=== PATIENT | male | born 1955 | race African-American/Black ===

== ENCOUNTER 2021-04-19 21:23 | Inpatient (IN) | payer OTHER ==
[2021-04-19 22:39] VITALS: BMI 26.4
[2021-04-19] MEDS ORDERED: ACETAMINOPHEN 325 MG TABLET (FP) PO PRN (23:33)
[2021-04-19] MEDS ORDERED: MENTHOL/PHENOL 1 EACH UD MM PRN (23:33)
[2021-04-19] MEDS ORDERED: MAGNESIUM HYDROX 2400MG/30ML ORAL SUSPENSION 30 ML CUP PO PRN (23:33)
[2021-04-19] MEDS ORDERED: MAGNESIUM CITRATE 300 ML BOTTLE PO PRN (23:33)
[2021-04-19] MEDS ORDERED: MAG HYDROX/AL HYDROX/SIMETH 30 ML UNIT-DOSE CUP PO PRN (23:33)
[2021-04-19] MEDS ORDERED: NALOXONE (NARCAN) HCL 4 MG/0.1 ML SPRAY NS PRN (23:33)
[2021-04-20] MEDS ORDERED: methaDONE HCL 10 MG TABLET (FOR DETOX USE ONLY) PO ONE ×2 (00:06→10:00)
[2021-04-20] MEDS ORDERED: cloNIDine HCL 0.1 MG TABLET PO PRN (00:06)
[2021-04-20] MEDS ORDERED: hydrOXYzine PAMOATE 25 MG CAPSULE (FP) PO PRN (00:10)
[2021-04-20] MEDS: ACETAMINOPHEN 325 MG TABLET (FP) PO PRN ×4 (00:36→22:05)
[2021-04-20] MEDS: INSULIN SLIDING SCALE (NOVOLOG) 1 VIAL SQ SCH ×2 (06:01→17:20)
[2021-04-20] MEDS: GABAPENTIN 400 MG CAPSULE PO SCH ×2 (10:16→22:03)
[2021-04-20] MEDS: PANTOPRAZOLE 40 MG TABLET PO SCH (10:16)
[2021-04-20] MEDS: TAMSULOSIN HCL 0.4 MG CAP PO SCH (10:16)
[2021-04-20] MEDS: PRENATAL VITAMINS W/ FOLIC ACID TABLET (FP) PO SCH (10:16)
[2021-04-20] MEDS: CLOPIDOGREL BISULFATE 75 MG TABLET (FP) PO SCH (10:16)
[2021-04-20] MEDS: ASPIRIN 81 MG CHEWABLE TABLETS PO SCH (10:16)
[2021-04-20] MEDS: DOLUTEGRAVIR SODIUM 50 MG TABLET (NON-FORMULARY) PO SCH (10:36)
[2021-04-20] MEDS: FINASTERIDE 5 MG TABLET (FP) PO SCH (10:36)
[2021-04-20] MEDS: NIFEdipine E.R. 90 MG TABLET PO SCH (10:36)
[2021-04-20] MEDS: lamiVUDine/ZIDOVUDINE 150/300 1 COMBO TABLET PO SCH (13:51)
[2021-04-20] MEDS: RIVAROXABAN 20 MG TABLET PO SCH (17:20)
[2021-04-20] MEDS ORDERED: MELATONIN 5 MG TABLETS PO SCH (22:00)
[2021-04-20] MEDS: ATORVASTATIN CA 40 MG TABLET (FP) PO SCH (22:03)
[2021-04-20] MEDS: THIAMINE HCL 100 MG TABLET (FP) PO SCH (22:04)
[2021-04-20] MEDS: traZODone HCL 100 MG TABLET (FP) PO SCH (22:04)
[2021-04-21] MEDS: INSULIN SLIDING SCALE (NOVOLOG) 1 VIAL SQ SCH ×2 (06:07→16:35)
[2021-04-21] MEDS ORDERED: methaDONE HCL 10 MG TABLET (FOR DETOX USE ONLY) ONE (08:35)
[2021-04-21] MEDS: PRENATAL VITAMINS W/ FOLIC ACID TABLET (FP) PO SCH (10:12)
[2021-04-21] MEDS: NIFEdipine E.R. 90 MG TABLET PO SCH (10:13)
[2021-04-21] MEDS: lamiVUDine/ZIDOVUDINE 150/300 1 COMBO TABLET PO SCH ×2 (10:13→22:03)
[2021-04-21] MEDS: TAMSULOSIN HCL 0.4 MG CAP PO SCH (10:13)
[2021-04-21] MEDS: CLOPIDOGREL BISULFATE 75 MG TABLET (FP) PO SCH (10:13)
[2021-04-21] MEDS: ASPIRIN 81 MG CHEWABLE TABLETS PO SCH (10:13)
[2021-04-21] MEDS: GABAPENTIN 400 MG CAPSULE PO SCH ×2 (10:13→22:03)
[2021-04-21] MEDS: PANTOPRAZOLE 40 MG TABLET PO SCH (10:13)
[2021-04-21] MEDS: DOLUTEGRAVIR SODIUM 50 MG TABLET (NON-FORMULARY) PO SCH (10:14)
[2021-04-21] MEDS: FINASTERIDE 5 MG TABLET (FP) PO SCH (10:14)
[2021-04-21 10:58] LABS: HEMATOCRIT 36.6 % (35.4-49); HEMOGLOBIN 12.5 GM/dL (11.7-16.9); MCH 32.1 pg (25.7-33.7); MCHC 34.3 g/dl (32.0-35.9); MEAN CELL VOLUME 93.6 fl (80-96); PLATELET COUNT 205 10^3/uL (134-434); RBC 3.91 M/mm3 (4.00-5.60); RDW 17.7 % (11.9-15.9); WHITE BLOOD COUNT 3.2 K/mm3 (4.0-10.0)
[2021-04-21 11:43] LABS: ALBUMIN 3.2 g/dl (3.4-5.0); CALCIUM 8.9 mg/dL (8.5-10.1)
[2021-04-21 11:44] LABS: BLOOD UREA NITROGEN 15.3 mg/dL (7-18)
[2021-04-21 11:46] LABS: CREATININE 1.4 mg/dL (0.55-1.3)
[2021-04-21 11:48] LABS: BILIRUBIN,TOTAL 0.4 mg/dL (0.2-1); TOT PROT 6.8 g/dl (6.4-8.2)
[2021-04-21] MEDS ORDERED: FLU VACC QS2021-22(6MOS UP)/PF 60 MCG/0.5 ML SYRINGE IM ONE (12:00)
[2021-04-21] MEDS: ACETAMINOPHEN 325 MG TABLET (FP) PO PRN ×2 (12:05→17:29)
[2021-04-21] MEDS: RIVAROXABAN 20 MG TABLET PO SCH (17:30)
[2021-04-21] MEDS: THIAMINE HCL 100 MG TABLET (FP) PO SCH (22:03)
[2021-04-21] MEDS: traZODone HCL 100 MG TABLET (FP) PO SCH (22:03)
[2021-04-21] MEDS: ATORVASTATIN CA 40 MG TABLET (FP) PO SCH (22:03)
[2021-04-22] MEDS: GABAPENTIN 400 MG CAPSULE PO SCH (06:38)
[2021-04-22] MEDS: INSULIN SLIDING SCALE (NOVOLOG) 1 VIAL SQ SCH (06:38)
[2021-04-22 08:52] VITALS: BP 128/70; PULSE 77; TEMP 97.1
[2021-04-22] MEDS ORDERED: methaDONE HCL 10 MG TABLET (FOR DETOX USE ONLY) PO ONE (10:00)
[2021-04-22] MEDS: PRENATAL VITAMINS W/ FOLIC ACID TABLET (FP) PO SCH (10:19)
[2021-04-22] MEDS: PANTOPRAZOLE 40 MG TABLET PO SCH (10:20)
[2021-04-22] MEDS: CLOPIDOGREL BISULFATE 75 MG TABLET (FP) PO SCH (10:20)
[2021-04-22] MEDS: TAMSULOSIN HCL 0.4 MG CAP PO SCH (10:20)
[2021-04-22] MEDS: ASPIRIN 81 MG CHEWABLE TABLETS PO SCH (10:20)
[2021-04-22] MEDS: NIFEdipine E.R. 90 MG TABLET PO SCH (10:22)
[2021-04-22] MEDS: FINASTERIDE 5 MG TABLET (FP) PO SCH (10:23)
[2021-04-22] MEDS: lamiVUDine/ZIDOVUDINE 150/300 1 COMBO TABLET PO SCH (10:23)
[2021-04-22] MEDS: DOLUTEGRAVIR SODIUM 50 MG TABLET (NON-FORMULARY) PO SCH (10:23)
== END 2021-04-22 12:13 | disposition other institution (70) | DRG 897 ==
LOC: YASAS 21:23 → Y3N 23:38
PROVIDERS: ADMIT Allergy & Immunology; ATTEND Allergy & Immunology
PROC: HZ2ZZZZ Detoxification Services for Substance Abuse Treatment (ICD-10-PCS; principal; 2021-04-19)
DX: F11.23 Opioid dependence with withdrawal (principal); F14.20 Cocaine dependence, uncomplicated; F19.282 Other psychoactive substance dependence with psychoactive substance-induced sleep disorder; F17.210 Nicotine dependence, cigarettes, uncomplicated; F19.24 Other psychoactive substance dependence with psychoactive substance-induced mood disorder; F32.A Depression, unspecified; Z21 Asymptomatic human immunodeficiency virus [HIV] infection status; G62.9 Polyneuropathy, unspecified; E78.5 Hyperlipidemia, unspecified; I25.10 Atherosclerotic heart disease of native coronary artery without angina pectoris; I10 Essential (primary) hypertension; E11.9 Type 2 diabetes mellitus without complications; M54.50 Low back pain, unspecified; G89.29 Other chronic pain; N40.0 Benign prostatic hyperplasia without lower urinary tract symptoms; Z86.718 Personal history of other venous thrombosis and embolism; Z79.01 Long term (current) use of anticoagulants; Z95.9 Presence of cardiac and vascular implant and graft, unspecified; Z98.890 Other specified postprocedural states; Z86.11 Personal history of tuberculosis
CPT/HCPCS: 36415; 71045-TC-FY; 80053; 82962; 85027; 86780; 93005; 93010; C9803; J0735; U0003; U0005